=== PATIENT | male | born 2000 | race Asian ===

== ENCOUNTER 2025-01-27 20:32 | Emergency (ER) | payer OTHER ==
[~2025-01-27] VITALS: Ht 167.6 cm; Wt 60.3 kg
[2025-01-27] MEDS ORDERED: LIDOCAINE HCL/PF 1% 30 ML SDV ONE (21:01)
[2025-01-27] MEDS ORDERED: HYDROCODONE/APAP 5/325MG TABLET ONE (21:01)
[2025-01-27] MEDS ORDERED: TDAP [DIPH/PERTUSSIS/TET] 0.5 ML VIAL IM ONE (21:02)
[2025-01-27] MEDS: LIDOCAINE HCL/PF 1% 30 ML VIAL TP ONE (21:04)
[2025-01-27] MEDS: HYDROCODONE/APAP 5/325MG TABLET PO ONE (21:04)
[2025-01-27] MEDS: TDAP [DIPH/PERTUSSIS/TET] 0.5 ML VIAL IM ONE (21:07)
[2025-01-27] MEDS ORDERED: AMOX-430 PO (22:56)
[2025-01-27] MEDS ORDERED: IBUP-76 PO (22:56)
[2025-01-27] MEDS ORDERED: OXYC-117 PO (23:03)
[2025-01-27 23:37] VITALS: BP 126/80; TEMP 98.4; O2SAT 97
== END 2025-01-27 23:38 | disposition home or self-care (01) ==
LOC: ER 20:34
DX: S02.2XXA Fracture of nasal bones, initial encounter for closed fracture (principal); S01.01XA Laceration without foreign body of scalp, initial encounter; S01.511A Laceration without foreign body of lip, initial encounter; F17.200 Nicotine dependence, unspecified, uncomplicated; R51.9 Headache, unspecified; Z60.2 Problems related to living alone; W22.8XXA Striking against or struck by other objects, initial encounter; Y93.89 Activity, other specified; Y92.89 Other specified places as the place of occurrence of the external cause; Y99.8 Other external cause status
CPT/HCPCS: 12014; 70450; 70486; 90471; 90715; 99285; A6403; J3490; L0172